=== PATIENT | male | born 1945 | race Caucasian/White ===

== ENCOUNTER 2017-07-30 07:23 | Day surgery (SDC) ==
[2015-11-03 11:27] VITALS: BMI 29.7
[2017-07-30] MEDS ORDERED: LIDOCAINE 1% 20 ML MDV ID STA (07:46)
[2017-07-30] MEDS ORDERED: VERSED ONE (09:00)
[2017-07-30] MEDS ORDERED: DIPRIVAN 20 ML VIAL IVP ONE (09:00)
[2017-07-30 14:18] VITALS: BP 140/76; TEMP 96.9
--- NOTE | 2017-07-31 09:21 | OP ---
INDICATIONS FOR PROCEDURE: 71-year-old gentleman presents for colonoscopy examination. He has a history of multiple colonic polyps. He had 18 polyps a few years ago, 10 polyps two years ago. He has a history of adenomatous polyps. He is scheduled for colonoscopy exam. MEDICATIONS: SEE ANESTHESIA NOTES. PROCEDURE: COLONOSCOPY, SNARE POLYPECTOMY. REPORT: The risks, benefits, alternatives and limitations were discussed in detail with the patient. Informed consent was obtained. After adequate sedation was achieved, digital rectal exam revealed good tone, no masses. The colonoscope was introduced into the rectum and advanced under direct visual guidance to the cecum. The cecum was identified by the appendiceal orifice and IC valve. I then slowly withdrew the scope in a circumferential manner. I looked on the proximal and distal side of folds and flexures as best as possible. I retroflexed the scope in the right colon and the left colon to increase visualization. In the cecum there is a small 5 mm polyp that I removed by snare technique. It was retrieved. In the ascending colon there was a diminutive 3 to 4 mm polyp that I destroyed by snare technique. In the proximal transverse colon there is a 6 mm slightly raised polyp that I removed by snare technique. In the very distal sigmoid there were four polyps that appeared quite benign. These were removed by snare technique. There were several small mouth diverticula scattered throughout the sigmoid area. No other abnormalities were noted including on retroflex view of the anal canal. The prep was good. The withdrawal time was 12 minutes an 23 seconds. The patient tolerated the procedure well with stable vital signs and pulse oximetry throughout. IMPRESSION: 1. SEVEN (7) POLYPS REMOVED OR DESTROYED ABOVE 2. SIGMOID DIVERTICULOSIS RECOMMENDATIONS: 1. High fiber diet 2. Office visit as needed 3. Await polyp pathology. If everything is benign I recommend surveillance colonoscopy examination again in 3 years, sooner if signs or symptoms would indicate otherwise. CC: DR. [facility]
== END 2017-07-30 10:25 | disposition home or self-care (01) ==
LOC: SURG 07:23
PROVIDERS: ATTEND Internal Medicine Gastroenterology
DX: Z09 Encounter for follow-up examination after completed treatment for conditions other than malignant neoplasm (principal); Z86.010 Personal history of colon polyps; K63.5 Polyp of colon; D12.3 Benign neoplasm of transverse colon